=== PATIENT | female | born 1940 | race Caucasian/White ===

== ENCOUNTER 2016-12-21 10:51 | Day surgery (SDCO) | payer MEDICARE ==
[2016-12-21 12:00] LABS: BILIRUBIN NEGATIVE (NEGATIVE); BLOOD NEGATIVE Ery/uL (NEGATIVE); CLARITY CLEAR (CLEAR); COLOR YELLOW (YELLOW); GLUCOSE (U) NORMAL (NORMAL); KETONE (U) NEGATIVE (NEGATIVE); LEUKOCYTES NEGATIVE Leu/uL (NEGATIVE); NITRITE NEGATIVE (NEGATIVE); PROTEIN NEGATIVE (NEGATIVE); UROBILINOGEN 0.2 mg/dL (0.2-1.0)
[2016-12-21 12:12] LABS: BASOPHIL 0.5 % (0-2); EOSINOPHIL 0.3 % (0-7); HCT 38.8 % (37.0-47.0); HGB 13.9 g/dl (12.5-16.0); LYMPHOCYTE 21.7 % (15-48); MCHC 35.8 g/dL (32.0-36.0); MCV 80.8 fL (78.0-100.0); MONOCYTE 10.4 % (0-12); MPV 9.6 fL (6.0-9.5); NEUTROPHIL 67.1 % (41-80); PLT 257 K/uL (150-400); RDW 12.7 % (11.5-14.0); WBC 8.6 K/uL (4.0-10.5)
[2016-12-21 12:26] LABS: ALBUMIN 4.5 g/dL (3.4-4.8); BILIRUBIN - TOTAL 0.6 mg/dL (0.1-1.0); CREATININE 0.8 mg/dL (0.5-1.0); GLOBULIN (CALCULATION) 2.9 g/dL (2.2-4.2); TOTAL PROTEIN 7.4 g/dL (6.4-8.3)
[2016-12-22 06:11] LABS: HCT 36.8 % (37.0-47.0); HGB 13.1 g/dl (12.5-16.0); MCH 29.2 pg (25.0-31.0); MCHC 35.6 g/dL (32.0-36.0); MCV 82.1 fL (78.0-100.0); MPV 9.6 fL (6.0-9.5); RBC 4.48 M/uL (4.20-5.40); RDW 12.9 % (11.5-14.0); WBC 6.9 K/uL (4.0-10.5)
[2016-12-22 06:29] LABS: CREATININE 0.7 mg/dL (0.5-1.0); POTASSIUM 3.4 mmol/L (3.5-5.1)
== END 2016-12-22 17:02 | disposition home or self-care (01) ==
LOC: FER 10:51 → FMS 15:25
PROVIDERS: Emergency Medicine; ADMIT Internal Medicine
DX: R53.1 Weakness (principal); E87.1 Hypo-osmolality and hyponatremia; E87.6 Hypokalemia; I10 Essential (primary) hypertension; E03.9 Hypothyroidism, unspecified; G47.33 Obstructive sleep apnea (adult) (pediatric); F03.90 Unspecified dementia, unspecified severity, without behavioral disturbance, psychotic disturbance, mood disturbance, and anxiety; F41.9 Anxiety disorder, unspecified; F32.9 Major depressive disorder, single episode, unspecified; R11.0 Nausea; R19.7 Diarrhea, unspecified; N39.0 Urinary tract infection, site not specified; Z90.89 Acquired absence of other organs; Z85.850 Personal history of malignant neoplasm of thyroid; Z90.49 Acquired absence of other specified parts of digestive tract; Z96.653 Presence of artificial knee joint, bilateral; Z88.0 Allergy status to penicillin; Z88.2 Allergy status to sulfonamides; Z88.5 Allergy status to narcotic agent; Z83.3 Family history of diabetes mellitus; Z79.2 Long term (current) use of antibiotics; Z79.899 Other long term (current) drug therapy
CPT/HCPCS: 36415; 80048; 80053; 81003; 84484; 85025; 87088; 87324; 87449; 87804; 87899; 93005; G0378; J2405

== ENCOUNTER 2017-03-26 12:37 | Emergency (ER) | payer MEDICARE ==
[2017-03-26 13:42] LABS: BILIRUBIN NEGATIVE (NEGATIVE); BLOOD NEGATIVE Ery/uL (NEGATIVE); CLARITY CLEAR (CLEAR); COLOR YELLOW (YELLOW); GLUCOSE (U) NORMAL (NORMAL); KETONE (U) NEGATIVE (NEGATIVE); LEUKOCYTES 2+ Leu/uL (NEGATIVE); NITRITE NEGATIVE (NEGATIVE); PROTEIN NEGATIVE (NEGATIVE); UROBILINOGEN 0.2 mg/dL (0.2-1.0)
[2017-03-26 13:57] LABS: BACTERIA TRACE
[2017-03-26 14:01] LABS: BASOPHIL 0.5 % (0-2); EOSINOPHIL 0.5 % (0-7); HCT 36.4 % (37.0-47.0); HGB 13.2 g/dl (12.5-16.0); LYMPHOCYTE 19.3 % (15-48); MCH 29.5 pg (25.0-31.0); MCHC 36.3 g/dL (32.0-36.0); MCV 81.3 fL (78.0-100.0); MONOCYTE 9.2 % (0-12); MPV 9.6 fL (6.0-9.5); NEUTROPHIL 70.5 % (41-80); PLT 198 K/uL (150-400); RBC 4.48 M/uL (4.20-5.40); RDW 12.8 % (11.5-14.0); WBC 6.1 K/uL (4.0-10.5)
[2017-03-26 14:28] LABS: ALBUMIN 4.1 g/dL (3.4-4.8); BILIRUBIN - TOTAL 0.6 mg/dL (0.1-1.0); CREATININE 0.8 mg/dL (0.5-1.0); GLOBULIN (CALCULATION) 2.6 g/dL (2.2-4.2); POTASSIUM 3.9 mmol/L (3.5-5.1); TOTAL PROTEIN 6.7 g/dL (6.4-8.3)
== END 2017-03-26 16:38 | disposition home or self-care (01) ==
LOC: FER 12:37
PROVIDERS: Emergency Medicine
DX: R10.9 Unspecified abdominal pain (principal); E03.9 Hypothyroidism, unspecified; I10 Essential (primary) hypertension; Z88.0 Allergy status to penicillin; Z88.2 Allergy status to sulfonamides; Z79.899 Other long term (current) drug therapy
CPT/HCPCS: 36415; 80053; 81001; 82150; 83690; 85025; J2175; J2405; Q9967

== ENCOUNTER 2020-11-18 17:41 | Emergency (ER) | payer MEDICARE ==
[~2020-11-18 17:41] MED LIST: ACYCLOVIR800 MG PO; BYSTOLIC10 MG PO; CARAFATE S500 MG/TSP PO; CARDIZEM CD240 MG PO; COLACE100 MG PO; COZAAR100 MG PO; EFFEXOR XR150 MG PO; KLONOPIN0.5 MG PO; LANSOPRAZOLE30 MG PO; MEDROL 4MG DOSEP4 MG PO; MELATONIN10 M1 PO; NORVASC5 MG PO; PREDNISONE 20MG20 MG PO; RIVASTIGMINE; SEROQUEL 100MG100 MG PO; SINGULAIR10 MG PO; SYNTHROID125 MCG PO; TRAZODONE 100M100 MG PO; UROCIT-K10 MEQ PO; VIBRAMYCIN100 MG PO; fluticasone
[2020-11-18 21:26] LABS: BILIRUBIN NEGATIVE (NEGATIVE); BLOOD NEGATIVE Ery/uL (NEGATIVE); CLARITY CLEAR (CLEAR); COLOR YELLOW (YELLOW); GLUCOSE (U) NORMAL (NORMAL); LEUKOCYTES NEGATIVE Leu/uL (NEGATIVE); NITRITE NEGATIVE (NEGATIVE); PROTEIN NEGATIVE (NEGATIVE); UROBILINOGEN 0.2 mg/dL (0.2-1.0)
[2020-11-18 21:37] LABS: BASOPHIL 0.3 % (0-2); EOSINOPHIL 0.6 % (0-7); HCT 39.4 % (37.0-47.0); HGB 12.9 g/dl (12.5-16.0); LYMPHOCYTE 22.1 % (15-48); MCH 28.2 pg (25.0-31.0); MCHC 32.7 g/dL (32.0-36.0); MONOCYTE 7.2 % (0-12); MPV 10.3 fL (6.0-9.5); NEUTROPHIL 69.6 % (41-80); NRBC 0; PLT 149 K/uL (150-400); RBC 4.58 M/uL (4.20-5.40); RDW 12.3 % (11.5-14.0)
[2020-11-18 22:00] LABS: ALBUMIN 3.5 g/dL (3.4-5.0); BILIRUBIN - TOTAL 0.3 mg/dL (0.2-1.0); BUN/CREAT RATIO (CALC) 20.3 RATIO; CREATININE 0.74 mg/dL (0.51-0.95); GLOBULIN (CALCULATION) 3.5 g/dL; POTASSIUM 3.4 mmol/L (3.5-5.1)
== END 2020-11-18 22:17 | disposition home or self-care (01) ==
LOC: FER 17:41
PROVIDERS: Nurse Practitioner Family
DX: K59.00 Constipation, unspecified (principal); I10 Essential (primary) hypertension; F03.90 Unspecified dementia, unspecified severity, without behavioral disturbance, psychotic disturbance, mood disturbance, and anxiety; Z85.850 Personal history of malignant neoplasm of thyroid; Z98.890 Other specified postprocedural states; Z88.5 Allergy status to narcotic agent; Z88.2 Allergy status to sulfonamides
CPT/HCPCS: 36415; 80053; 81003; 85025

== ENCOUNTER 2021-06-18 09:52 | Emergency (ER) | payer MEDICARE ==
[2021-06-18 10:28] LABS: BASOPHIL 0.7 % (0-2); EOSINOPHIL 1.1 % (0-7); HCT 41.4 % (37.0-47.0); HGB 13.3 g/dl (12.5-16.0); LYMPHOCYTE 20.7 % (15-48); MCH 29.9 pg (25.0-31.0); MCHC 32.1 g/dL (32.0-36.0); MONOCYTE 8.9 % (0-12); MPV 9.5 fL (6.0-9.5); NEUTROPHIL 68.1 % (41-80); NRBC 0; PLT 165 K/uL (150-400); RBC 4.45 M/uL (4.20-5.40); RDW 13.1 % (11.5-14.0); WBC 7.3 K/uL (4.0-10.5)
[2021-06-18 10:32] LABS: INR 0.98 (0.9-1.2); PROTHROMBIN TIME 12.4 SECONDS (11.8-13.4); PTT 24.5 SECONDS (24.4-34.7)
[2021-06-18 10:43] LABS: ALBUMIN 3.4 g/dL (3.4-5.0); BILIRUBIN - TOTAL 0.3 mg/dL (0.2-1.0); BUN/CREAT RATIO (CALC) 21.6 RATIO; CREATININE 0.97 mg/dL (0.51-0.95); GLOBULIN (CALCULATION) 3.5 g/dL; TOTAL PROTEIN 6.9 g/dL (6.4-8.2)
== END 2021-06-18 11:40 | disposition home or self-care (01) ==
LOC: FER 09:52
PROVIDERS: Emergency Medicine
DX: R07.89 Other chest pain (principal); I10 Essential (primary) hypertension; F03.90 Unspecified dementia, unspecified severity, without behavioral disturbance, psychotic disturbance, mood disturbance, and anxiety; Z88.2 Allergy status to sulfonamides; Z88.0 Allergy status to penicillin; Z88.5 Allergy status to narcotic agent
CPT/HCPCS: 36415; 71045; 80053; 82553; 84484; 85025; 85610; 85730; 93005

== ENCOUNTER 2022-04-01 11:49 | Emergency (ER) | payer MEDICARE ==
[2022-04-01 12:28] LABS: BASOPHIL 0.7 % (0-2); EOSINOPHIL 0.9 % (0-7); HCT 41.7 % (37.0-47.0); HGB 13.8 g/dl (12.5-16.0); LYMPHOCYTE 22.2 % (15-48); MCH 29.9 pg (25.0-31.0); MCHC 33.1 g/dL (32.0-36.0); MCV 90.5 fL (78.0-100.0); MONOCYTE 8.5 % (0-12); NEUTROPHIL 67.1 % (41-80); NRBC 0; PLT 171 K/uL (150-400); RBC 4.61 M/uL (4.20-5.40); RDW 12.5 % (11.5-14.0)
[2022-04-01 12:47] LABS: ALBUMIN 3.7 g/dL (3.4-5.0); BILIRUBIN - TOTAL 0.5 mg/dL (0.2-1.0); BUN/CREAT RATIO (CALC) 24.5 RATIO; CREATININE 1.02 mg/dL (0.51-0.95); GLOBULIN (CALCULATION) 3.7 g/dL; MAGNESIUM 2.5 mg/dL (1.8-2.4); TOTAL PROTEIN 7.4 g/dL (6.4-8.2)
== END 2022-04-01 17:34 | disposition home or self-care (01) ==
LOC: FER 11:49
PROVIDERS: Emergency Medicine
DX: R07.9 Chest pain, unspecified (principal); I10 Essential (primary) hypertension; F03.90 Unspecified dementia, unspecified severity, without behavioral disturbance, psychotic disturbance, mood disturbance, and anxiety; Z20.822 Contact with and (suspected) exposure to COVID-19; Z88.0 Allergy status to penicillin; Z88.2 Allergy status to sulfonamides; Z88.5 Allergy status to narcotic agent
CPT/HCPCS: 36415; 71045; 71275; 80053; 83735; 83880; 84484; 85025; 85379; 93005; Q9967; U0002